=== PATIENT | male | born 1990 | race Caucasian/White ===

== ENCOUNTER 2023-02-25 19:00 | Emergency (ER) | payer BC ==
[~2023-02-25] VITALS: Ht 190.5 cm; Wt 124.7 kg
[~2023-02-25 19:00] MED LIST: LORA-258 PO
[2023-02-25 19:10] VITALS: BP_SYST 145
== END 2023-02-25 19:30 | disposition left against medical advice (07) ==
LOC: SED 19:00
DX: R06.02 Shortness of breath (principal); F41.9 Anxiety disorder, unspecified; Z53.21 Procedure and treatment not carried out due to patient leaving prior to being seen by health care provider
CPT/HCPCS: 99281